=== PATIENT | female | born 1965 | race Caucasian/White ===

== ENCOUNTER 2018-01-05 14:33 | Emergency (ER) | payer OTHER ==
[~2018-01-05] VITALS: Ht 162.6 cm; Wt 68.0 kg
[~2018-01-05 14:33] MED LIST: CARA1TAB2 OR; LORT5TAB PO; PHEN12.5 PO; PHEN12.5 PR; PROT40TA PO; TAMS0.4C67 PO
[2018-01-05 14:37] VITALS: BP 104/71; PULSE 106; RESP 16; TEMP 97.7; O2SAT 94
--- NOTE | 2018-01-05 14:46 | PD ---
HPI . Lima catheter Chief Complaint: [employer] Problem Time Seen by Provider: 14:39 Travel History International Travel<30 days: No Contact w/Intl Traveler<30days: No History of Present Illness HPI This patient presents stating that she would like to have her Lima catheter removed. She states that she was at an outside facility in late November and had a urinary stent and Lima catheter placed, presumably for kidney stones. She states that she called the doctor about the Lima and was told to come here to have it removed. She states that the urologist did not realize that the Lima catheter was still in place. She states that she was unable to see the urologist at his office because he does not take her insurance. Her only complaint is that the Lima catheter is uncomfortable. PFSH Past Medical History Asthma: No Autoimmune Disease: Yes (HEMOLYTIC ANEMIA) Bipolar Disorder: Yes Cardiovascular Problems: No High Cholesterol: Yes COPD: No Developmental Delay: Yes Diabetes: No GERD: Yes Headaches: Yes Hepatitis: No Hiatal Hernia: Yes ( ACID REFLUX) Kidney Stones: Yes Respiratory: Yes (DIFFICULTY AFTER SURGERY) Migraines: Yes Thyroid Disease: No Ulcer: Yes Menopausal: Yes Past Surgical History Abdominal Surgery: Yes ( SPLENECTOMY) Appendectomy: Yes Section: Yes Cholecystectomy: Yes Genitourinary Surgery: Yes (LIPTROTRIPSY) Gynecologic Surgery: Yes () Pacemaker: No Tonsillectomy: Yes (CHILDHOOD) Other Surgery: Yes (SPLEENECTOMY) Family History Family Hypercholesterolemia: Yes Social History Alcohol Use: No Tobacco Use: Yes (1 PPD) Substance Use: No Allergies-Medications (Allergen,Severity, Reaction): Coded Allergies: Iodinated Contrast- Oral and IV Dye (Unverified Allergy, Severe, Hives, 08/14) cefaclor (Unverified Allergy, Severe, RASH, 01/05/18) cephalexin (Unverified Allergy, Severe, HIVES, 01/05/18) nitrofurantoin (Unverified Allergy, Severe, HIVES, 01/05/18) penicillin G (Unverified Allergy, Severe, HIVES, NAUSEA/VOMITING, 01/05/18) Reported Meds & Prescriptions Reported Meds & Active Scripts Active Phenergan (Promethazine HCl) 12.5 Mg Tab 12.5 Mg PO Q6HPRN FOR NAUSEA Phenergan (Promethazine HCl) 12.5 Mg Sup 12.5 Mg OR Q6HPRN FOR NAUSEA USE IF UNABLE TO TAKE ORAL MEDICATION Flomax (Tamsulosin HCl) 0.4 Mg Cap 0.4 Mg PO DAILY Lortab 5/500 (Acetaminophen/Hydrocodone Bitart) 5 Mg/500 Mg Tab 1 Tab PO Q6HPRN Reported Carafate (Sucralfate) 1 Gm Tab 1 Gm OR PRN Protonix (Pantoprazole Sodium) 40 Mg Tabdr 40 Mg PO DAILY Review of Systems Except as stated in HPI: all other systems reviewed are Neg Physical Exam Narrative GENERAL: Awake and alert and in no acute distress. SKIN: Warm and dry. HEAD: Normocephalic/atraumatic. EYES: Pupils are equal. Extraocular movements are intact. NECK: Normal range of motion. RESPIRATORY: Nonlabored respirations. MUSCULOSKELETAL: Atraumatic. NEUROLOGICAL: Nonfocal. PSYCHIATRIC: Appropriate mood and affect. Data Data Last Documented VS Vital Signs Date Time Temp Pulse Resp B/P (MAP) Pulse Ox O2 Delivery O2 Flow Rate FiO2 01/05/18 14:37 97.7 106 16 104/71 (82) 94 Orders Orders Remove Urinary Catheter .ONCE (01/05/18 14:53) MDM Medical Decision Making Medical Screen Exam Complete: Yes Emergency Medical Condition: Yes Differential Diagnosis Differential diagnosis includes but is not limited to acute urinary retention due to infection, obstruction, neurogenic bladder Narrative Course This patient presents requesting that her Lima catheter be removed. It will be removed and she will be discharged home. Diagnosis Primary Impression: Encounter for assessment of Lima catheter Disposition: DISCHARGE HOME Condition: Stable Ale Mccain MD Jan 05, 2018 14:46
[2018-01-05] MEDS ORDERED: FOLI800T PO (15:04)
[2018-01-05] MEDS ORDERED: PHEN0.4T PO (15:04)
[2018-01-05] MEDS ORDERED: PERC5TAB12 PO (15:04)
[2018-01-05] MEDS ORDERED: TAMS5CAP PO (15:04)
== END 2018-01-05 15:19 | disposition home or self-care (01) ==
LOC: PHEFT 14:33
DX: Z46.6 Encounter for fitting and adjustment of urinary device (principal); D58.9 Hereditary hemolytic anemia, unspecified; F31.9 Bipolar disorder, unspecified; E78.00 Pure hypercholesterolemia, unspecified; K21.9 Gastro-esophageal reflux disease without esophagitis; Z87.442 Personal history of urinary calculi; Z79.899 Other long term (current) drug therapy; Z88.0 Allergy status to penicillin; Z88.8 Allergy status to other drugs, medicaments and biological substances
CPT/HCPCS: 99283